=== PATIENT | female | born 1995 | race Caucasian/White ===

== ENCOUNTER 2023-12-26 12:07 | Inpatient (IN) | payer MEDICAID, OTHER ==
[~2023-12-26] VITALS: Ht 157.5 cm; Wt 60.8 kg
[2023-12-26] MEDS: KETOROLAC TROMETH 30 MG/ML 1ML VIAL IV ONE (12:55)
[2023-12-26] MEDS: SODIUM CHLORIDE 0.9% 1,000 ML IVB ONE (12:55)
[2023-12-26 13:11] LABS: Basophils # (auto) 0.1 10 ^3/uL (0-0.2); Basophils % (auto) 0.9 % (0.0-2.0); Eosinophils # (auto) 0.4 10 ^3/uL (0-0.8); Eosinophils % (auto) 5.9 % (0.0-7.0); Hematocrit 41.4 % (36.0-46.0); Hemoglobin 14.3 g/dL (12.2-16.2); Lymphocytes % (auto) 27.2 % (10.0-50.0); Mean Corpuscular Hemoglobin 31.6 pg (28.0-32.0); Mean Corpuscular Hgb Conc. 34.5 g/dL (32.0-36.0); Mean Corpuscular Volume 91.6 fL (80.0-100.0); Monocytes # (auto) 0.5 10 ^3/uL (0-1.3); Neutrophils # (auto) 4.3 10 ^3/uL (1.6-8.6); Nucleated Red Blood Cells % 0.1 %; Platelet Count (auto) 358 10^3/uL (140-450); Red Blood Cells 4.52 10^6/uL (4.0-5.20); Red Cell Distribution Width 12.8 % (11.8-14.3); White Blood Cell 7.2 10^3/uL (4.4-10.8)
[2023-12-26 13:27] LABS: Urine Bacteria MANY /hpf (None Seen); Urine Blood 3+ /uL (Negative); Urine Color Yellow (Yellow); Urine Protein, UAD TRACE (Negative); Urine Specific Gravity 1.024 (1.001-1.035); Urine Urobilinogen Normal (Negative); Urine WBC 40 /hpf (0 - 5); Urine pH 5.5 (5.0-9.0)
[2023-12-26 13:30] LABS: Urine Clarity Cloudy (Clear)
[2023-12-26 13:39] LABS: Alanine Aminotransferase 15 U/L (7-40); Alkaline Phosphatase 67 U/L (46-116); Anion Gap 5 (5-15); BUN/Creatinine Ratio 16.5 (10.0-20.0); Blood Urea Nitrogen 14 mg/dL (9-23); Carbon Dioxide 29 mmol/L (20-31); Chloride 106 mmol/L (98-107); Glucose 69 mg/dL (74-106); Potassium 4.3 mmol/L (3.5-5.1); Sodium 140 mmol/L (136-145)
[2023-12-26 13:40] LABS: Albumin 4.6 g/dL (3.2-4.8); Aspartate Aminotransferase 13 U/L (13-40); Bilirubin, Total 0.4 mg/dL (0.2-1.0); Total Protein 6.9 g/dL (5.7-8.2)
[2023-12-26 15:00] VITALS: PULSE 91; RESP 11; O2SAT 100
[2023-12-26] MEDS: MORPHINE SULFATE 4 MG/ML SYR/VIAL IV ONE (15:32)
[2023-12-26] MEDS: ONDANSETRON HCL 4 MG/2 ML VIAL IV ONE (15:32)
[2023-12-26] MEDS: PIPERACILLIN-TAZOB 3.375GM 100 ML IV ONE (15:40)
[2023-12-26] MEDS: LORazepam 2MG/ML-1ML VIAL IV ONE (16:37)
[2023-12-26] MEDS ORDERED: DOCUSATE SOD 100 MG CAP PO PRN (17:15)
[2023-12-26] MEDS: SODIUM CHLORIDE 0.9% 1,000 ML IV SCH (17:15)
[2023-12-26] MEDS ORDERED: ONDANSETRON HCL 4 MG/2 ML VIAL IV PRN (17:15)
[2023-12-26] MEDS ORDERED: MORPHINE SULFATE INJ 2 MG/ml SYRG IV PRN (17:15)
[2023-12-26] MEDS ORDERED: ACETAMINOPHEN 325 MG TAB PO PRN (17:15)
[2023-12-26] MEDS: cefTRIAXone 1GM/50ML D5W 50 ML IV ONE (17:30)
[2023-12-26 18:11] LABS: Amphetamine Screen, Urine Pos (NEGATIVE); Benzodiazephine Screen, Urine Neg (NEGATIVE)
[2023-12-26 18:12] LABS: Barbiturate Scree,Urine Neg (NEGATIVE); Cannabinoid Screen, Urine Pos (NEGATIVE); Cocaine Screen, Urine Neg (NEGATIVE); Opiate Scree,Urine Neg (NEGATIVE); Phencyclidine Screen, Urine Neg (NEGATIVE)
[2023-12-26 19:17] VITALS: PULSE 72; RESP 16; O2SAT 100
[2023-12-26 19:35] LABS: INR 1.14 (0.9-1.15); Partial Thromboplastin Time 26.8 SEC (24.5-34.5)
[2023-12-26] MEDS: HYDROcodone-ACET 5/325MG TAB PO PRN (20:53)
[2023-12-26 21:00] VITALS: BP 105/66; PULSE 74; RESP 18; TEMP 98.3; O2SAT 99
[2023-12-26 21:55] VITALS: PULSE 74; RESP 18; O2SAT 99
[2023-12-26] MEDS: metroNIDAZOLE 500MG/100ML 100 ML IV SCH (22:06)
[2023-12-27] VITALS (8 sets, daily range): BP systolic 93–112; BP diastolic 57–74; PULSE 64–106; RESP 16–22; TEMP 97.6–98.9; O2SAT 95–100
[2023-12-27] MEDS: KETOROLAC TROMETH 30 MG/ML 1ML VIAL IV PRN (02:09)
[2023-12-27] MEDS: cefTRIAXone 1GM/50ML D5W 50 ML IV SCH (08:44)
[2023-12-27 09:14] LABS: Basophils # (auto) 0.1 10 ^3/uL (0-0.2); Basophils % (auto) 1.2 % (0.0-2.0); Eosinophils # (auto) 0.4 10 ^3/uL (0-0.8); Eosinophils % (auto) 5.4 % (0.0-7.0); Hematocrit 38.8 % (36.0-46.0); Hemoglobin 13.3 g/dL (12.2-16.2); Lymphocytes % (auto) 29.5 % (10.0-50.0); Mean Corpuscular Hemoglobin 31.5 pg (28.0-32.0); Mean Corpuscular Hgb Conc. 34.2 g/dL (32.0-36.0); Mean Corpuscular Volume 92.1 fL (80.0-100.0); Monocytes # (auto) 0.4 10 ^3/uL (0-1.3); Monocytes % (auto) 6.1 % (0.0-12.0); Neutrophils % (auto) 57.8 % (37.0-80.0); Nucleated Red Blood Cells % 0.1 %; Platelet Count (auto) 321 10^3/uL (140-450); Red Blood Cells 4.21 10^6/uL (4.0-5.20); Red Cell Distribution Width 12.7 % (11.8-14.3); White Blood Cell 6.9 10^3/uL (4.4-10.8)
[2023-12-27 09:28] LABS: Alanine Aminotransferase 10 U/L (7-40); Albumin 3.6 g/dL (3.2-4.8); Alkaline Phosphatase 51 U/L (46-116); Anion Gap 4 (5-15); Aspartate Aminotransferase 13 U/L (13-40); BUN/Creatinine Ratio 10.3 (10.0-20.0); Blood Urea Nitrogen 7 mg/dL (9-23); Calcium 8.7 mg/dL (8.7-10.4); Carbon Dioxide 25 mmol/L (20-31); Chloride 112 mmol/L (98-107); Glucose 82 mg/dL (74-106); Potassium 3.9 mmol/L (3.5-5.1); Sodium 141 mmol/L (136-145)
[2023-12-27 09:30] LABS: Bilirubin, Total 0.5 mg/dL (0.2-1.0); Total Protein 5.6 g/dL (5.7-8.2)
[2023-12-27 11:33] LABS: Free T4 (Free Thyroxine) 0.93 ng/dL (0.89-1.76)
[2023-12-27 11:34] LABS: T3 Total 1.15 ng/mL (0.60-1.81)
[2023-12-27] MEDS: CYANOCOBALAMIN (B-12) 1000 MCG/1 ML VIAL IM ONE (18:32)
[2023-12-28 01:00] VITALS: BP 94/60; PULSE 86; RESP 18; TEMP 97.9; O2SAT 100
[2023-12-28 05:00] VITALS: BP 100/64; PULSE 76; RESP 18; TEMP 97.9; O2SAT 100
[2023-12-28 08:00] VITALS: PULSE 80; RESP 16; O2SAT 100
[2023-12-28 09:00] VITALS: BP_SYST 100; BP_SYST 117; BP_DIAS 54; BP_DIAS 71; PULSE 79; PULSE 80; RESP 15; RESP 16; TEMP 98.4; TEMP 98.6; O2SAT 100; O2SAT 93
[2023-12-28 12:18] LABS: Chloride 106 mmol/L (98-107); Potassium 3.6 mmol/L (3.5-5.1); Sodium 139 mmol/L (136-145)
[2023-12-28 12:19] LABS: Anion Gap 7 (5-15); Carbon Dioxide 26 mmol/L (20-31)
[2023-12-28 12:20] LABS: Calcium 9.8 mg/dL (8.7-10.4)
[2023-12-28 12:25] LABS: BUN/Creatinine Ratio 7.9 (10.0-20.0); Blood Urea Nitrogen 6 mg/dL (9-23); Glucose 119 mg/dL (74-106)
[2023-12-28 13:00] VITALS: BP 116/82; PULSE 91; RESP 16; TEMP 98.8; O2SAT 98
[2023-12-29 02:06] LABS: Chlamydia Trachomatis, NAA Negative (Negative); Neisseria gonorrhoeae, NAA Negative (Negative)
== END 2023-12-28 14:00 | disposition left against medical advice (07) | DRG 463 ==
LOC: ER 12:14 → OVERFLOW 17:21 → WEST WING 21:18
PROVIDERS: ADMIT Internal Medicine; ATTEND Internal Medicine
DX: N30.00 Acute cystitis without hematuria (principal); K35.80 Unspecified acute appendicitis; F12.10 Cannabis abuse, uncomplicated; F17.210 Nicotine dependence, cigarettes, uncomplicated; F19.10 Other psychoactive substance abuse, uncomplicated; F15.10 Other stimulant abuse, uncomplicated; Z83.3 Family history of diabetes mellitus
CPT/HCPCS: 36415; 74176; 76705; 76856; 80048; 80053; 80307; 81001; 82306; 82607; 83036; 84439; 84443; 84480; 84702; 85025; 85610; 85730; 86592; 86703; 86706; 86803; 87086; 87340; G0378; J1885; J2405; J2543; J3490